=== PATIENT | female | born 1960 | race Caucasian/White ===

== ENCOUNTER → 2022-02-15 16:23 | Outpatient (BNVA) | payer MEDICARE, SELFPAY | PROVIDERS: Visit Provider Family Medicine | DX: M54.50 Low back pain, unspecified (principal); Z12.11 Encounter for screening for malignant neoplasm of colon; I10 Essential (primary) hypertension; Z76.89 Persons encountering health services in other specified circumstances; E78.2 Mixed hyperlipidemia | CPT/HCPCS: 80053; 80061; 85025 ==

== ENCOUNTER → 2022-04-25 14:54 | Outpatient (BNVA) | payer MEDICARE, SELFPAY | PROVIDERS: PCP Family Medicine; Visit Provider Surgery | DX: Z12.11 Encounter for screening for malignant neoplasm of colon (principal); Z86.010 Personal history of colon polyps | CPT/HCPCS: 99203 ==

== ENCOUNTER 2022-06-13 09:49 | Day surgery (SDC) | payer MEDICARE, SELFPAY ==
[2022-06-12 12:08] VITALS: BMI 38.2
[2022-06-13 10:08] VITALS: BP 191/103; PULSE 77; RESP 18; TEMP 36.2; O2SAT 98
[2022-06-13] MEDS: sodium chloride 0.9% 1,000 ML 30 ML IV (10:29)
--- NOTE | 2022-06-13 10:36 | ANES.PREANE2 ---
Pre-Anesthetic Assessment Height/Weight: Height 1.68 m Weight 107.501 kg Temp Pulse Resp BP Pulse Ox O2 Del Method 97.2 F L 77 18 191/103 98 06/13/22 10:08 06/13/22 10:08 06/13/22 10:08 06/13/22 10:08 06/13/22 10:08 06/13/22 10:08 Preop Diagnosis: screening Operation Date: 06/13/22 11:15 Proposed Procedures p Colonoscopy [id number],Z12.11(Not Applicable) - Arie Anaya DO Familial anesthetic complications: none Was Beta Francisco J taken within 24 hours: N/A Was Clonidine taken within 24 hours: N/A Last intake: Intake Last Liquid Date 06/12/22 Last Liquid Time 23:00 Last Solid Date 06/11/22 Last Intake: 23:00 Social No alcohol and No tobacco Exam alert, oriented x 3, clear to auscultation bilaterally and regular rate & rhythm Airway Submandibular: within normal limits Cervical ROM: within normal limits Mallampati: Class I Dentition: false (upper) Pulmonary Sleep Apnea (CPAP) CV/HEM Hypertension None reported Hepatic None reported GI None reported Metabolic Morbid Obesity [facility] [place] Lower Back Pain Neuropsych None reported Anesthetic Plan ASA status: 2 Anesthesia: MAC Medications/Allergies Home Medications Medication Instructions Recorded Confirmed Last Taken Type alendronate 70 mg tablet 70 mg PO .ONCE WEEKLY 02/15/22 06/12/22 06/12/22 History cholecalciferol (vitamin D3) 50 50 mcg PO DAILY 02/15/22 06/13/22 06/11/22 History mcg (2,000 unit) tablet lisinopril 40 mg tablet 40 mg PO DAILY 02/15/22 06/13/22 06/12/22 History multivitamin (One-A-Day Essential 1 tab PO DAILY 02/15/22 06/13/22 06/12/22 History tablet) omega 3-qxk-eht-fish oil 1,200 mg 1 cap PO DAILY 02/15/22 06/13/22 06/12/22 History (144 mg-216 mg) capsule (Fish Oil) miscellaneous medical supply See Rx Instructions .Route 03/19/22 06/12/22 Unknown Rx .COMPLEX #1 ea baclofen 10 mg tablet 10 mg PO BID PRN Spasms 06/12/22 06/13/22 06/12/22 History Allergies Allergy/AdvReac Type Severity Reaction Status Date / Time No Known Allergies Allergy Verified 06/13/22 10:10 Current Medications Generic Name Dose Route Start Last Admin Trade Name Andrea PRN Reason Stop Dose Admin Sodium Chloride 1,000 mls @ 30 mls/hr 06/13/22 10:00 06/13/22 10:29 Sodium Chloride 0.9% IV 06/14/22 09:59 30 mls/hr .Q24H KANA Administration PFSH Anesthesia Medical History (Updated 04/25/22 @ 15:43 by Arie Anaya DO) Colon cancer screening History of colon polyps Surgical History Hx of colonoscopy with polypectomy Hx of tubal ligation Social History Smoking and tobacco status: former smoker Alcohol intake: never Data Anesthesia Cardiac Studies: No Data to Display
--- NOTE | 2022-06-13 11:06 | P.HP_ITS ---
Providers/Chief Complaint Primary Care Provider: Austin Lima DO Chief Complaint: History of colon polyps History of Present Illness Ellen Kaur is a 62 year old female here for colonoscopy Medications/Allergies Home Medications Medication Instructions Recorded Confirmed Last Taken Type alendronate 70 mg tablet 70 mg PO .ONCE WEEKLY 02/15/22 06/12/22 06/12/22 History cholecalciferol (vitamin D3) 50 50 mcg PO DAILY 02/15/22 06/13/22 06/11/22 History mcg (2,000 unit) tablet lisinopril 40 mg tablet 40 mg PO DAILY 02/15/22 06/13/22 06/12/22 History multivitamin (One-A-Day Essential 1 tab PO DAILY 02/15/22 06/13/22 06/12/22 History tablet) omega 5-zca-euu-fish oil 1,200 mg 1 cap PO DAILY 02/15/22 06/13/22 06/12/22 History (144 mg-216 mg) capsule (Fish Oil) miscellaneous medical supply See Rx Instructions .Route 03/19/22 06/12/22 Unknown Rx .COMPLEX #1 ea baclofen 10 mg tablet 10 mg PO BID PRN Spasms 06/12/22 06/13/22 06/12/22 History Allergies Allergy/AdvReac Type Severity Reaction Status Date / Time No Known Allergies Allergy Verified 06/13/22 10:10 PFSH Acute PFSH: Medical History (Updated 04/25/22 @ 15:43 by Arie Anaya DO) Colon cancer screening History of colon polyps Surgical History Hx of colonoscopy with polypectomy Hx of tubal ligation Social History Smoking and tobacco status: former smoker Alcohol intake: never Vitals/I&O/Wt Last Vital Signs Temp 97.2 F L 06/13/22 10:08 Pulse 77 06/13/22 10:08 Resp 18 06/13/22 10:08 BP 191/103 06/13/22 10:08 Pulse Ox 98 06/13/22 10:08 O2 Del Method 06/13/22 10:08 Weight last 48 hrs Weight 237 lb A&P Assessment and plan (1) History of colon polyps: Plan Colonoscopy Attestations Medical Necessity Statement*: Home Coding Level of Care Code Acute [employer] for [employer] Fwd Diagnoses History of colon polyps Z86.010
[2022-06-13 11:31] VITALS: BP 105/64; PULSE 68; RESP 16; TEMP 36.1; O2SAT 97
[2022-06-13 11:49] VITALS: BP 119/75; PULSE 61; RESP 16; O2SAT 97
--- NOTE | 2022-06-13 12:10 | ANE.PACU2 ---
Inpatient post-anesthesia follow up: Airway intact: Yes Vital signs: Temperature 97 F Pulse Rate 61 Respiratory Rate 16 Blood Pressure 119/75 Pulse Oximetry 97 Oxygen Delivery Me thod Room Air Oxygen Flow Rate Fraction of Inspir ed Oxygen Hydration adequate: Yes Nausea and vomiting: No Pain level: 1 Mental status: Baseline
== END 2022-06-13 12:00 | disposition home or self-care (01) ==
PROVIDERS: PCP Family Medicine; Visit Provider Surgery
PROC: 0DJD8ZZ Inspection of Lower Intestinal Tract, Via Natural or Artificial Opening Endoscopic (ICD-10-PCS; CPT 45378; principal; 2022-06-13 11:15)
DX: Z12.11 Encounter for screening for malignant neoplasm of colon (principal); Z86.010 Personal history of colon polyps; G47.30 Sleep apnea, unspecified; I10 Essential (primary) hypertension; E66.01 Morbid (severe) obesity due to excess calories; Z68.38 Body mass index [BMI] 38.0-38.9, adult; Z87.891 Personal history of nicotine dependence
CPT/HCPCS: 45378; J2704; J7030

== ENCOUNTER → 2023-01-14 14:35 | Outpatient (BNVA) | payer MEDICARE, SELFPAY | PROVIDERS: PCP Family Medicine; Visit Provider Family Medicine | DX: R10.32 Left lower quadrant pain (principal); M81.0 Age-related osteoporosis without current pathological fracture; G47.33 Obstructive sleep apnea (adult) (pediatric); I10 Essential (primary) hypertension; L21.9 Seborrheic dermatitis, unspecified | CPT/HCPCS: 80053; 80061; 85025 ==

== ENCOUNTER 2023-03-20 20:00 | Outpatient (CLI) | payer MEDICARE, SELFPAY | END 2023-03-20 20:01 | disposition home or self-care (01) | LOC: SLEEP 03-21 06:22 | PROVIDERS: Visit Provider Family Medicine | DX: G47.33 Obstructive sleep apnea (adult) (pediatric) (principal) | CPT/HCPCS: 95810 ==

== ENCOUNTER → 2024-09-29 10:21 | Outpatient (BNVA) | payer MEDICARE, SELFPAY | PROVIDERS: PCP Family Medicine; Visit Provider Family Medicine | DX: J06.9 Acute upper respiratory infection, unspecified (principal); R09.89 Other specified symptoms and signs involving the circulatory and respiratory systems | CPT/HCPCS: 87400; 87420; 87426 ==

== ENCOUNTER → 2024-10-02 15:57 | Outpatient (BNVA) | payer MEDICARE, SELFPAY | PROVIDERS: PCP Family Medicine; Visit Provider Emergency Medicine | DX: R05.9 Cough, unspecified (principal); J20.8 Acute bronchitis due to other specified organisms; B96.89 Other specified bacterial agents as the cause of diseases classified elsewhere; J45.21 Mild intermittent asthma with (acute) exacerbation | CPT/HCPCS: 87400; 87426 ==